=== PATIENT | male | born 1950 | race Caucasian/White ===

== ENCOUNTER 2025-07-10 11:15 | Outpatient (CLI) | payer MEDICARE, SELFPAY ==
--- NOTE | 2025-07-10 08:30 | DI.RAD_ITS ---
Exam(s) XR KNEE RT 4V AP,LAT,FESTUS,PAT EXAM: XR KNEE RT 4V AP,LAT,FESTUS,PAT CLINICAL HISTORY: RIGHT KNEE PAIN. TECHNIQUE: 2D digital imaging was performed of the right knee. Five views obtained. Merchant, AP, lateral and PA tunnel views were obtained. COMPARISON: No exams were available for comparison FINDINGS: BONES: No acute fracture is present. No bony destructive lesion is seen. JOINTS: There is marked narrowing of the lateral femoral tibial joint with [id number]. There is resultant deformity of the articular surfaces. The joint spaces are otherwise fairly well maintained. No joint effusion is seen. There are tiny densities seen in the posterior aspect of the joint which may represent loose bodies. SOFT TISSUE: Normal. 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 DATA REPOSITORY: RADIATION DOSE DELIVERED:
== END 2025-07-10 11:16 | disposition home or self-care (01) ==
LOC: DIORS 11:16
PROVIDERS: PCP Internal Medicine; Referring Provider Internal Medicine; Visit Provider Student in an Organized Health Care Education/Training Program
DX: M17.11 Unilateral primary osteoarthritis, right knee (principal)
CPT/HCPCS: 99203; 73564